=== PATIENT | male | born 1935 | race Caucasian/White ===

== ENCOUNTER 2018-09-11 23:39 | Emergency (ER) | payer MEDICARE ==
[~2018-09-11] VITALS: Ht 172.7 cm; Wt 72.6 kg
[2018-09-12 00:15] LABS: Chloride (POC) 96 mmol/L (98-108); Creatinine (POC) 1.2 mg/dL (0.8-1.3); Glucose (ISTAT POC) 132 mg/dL (70-99); Hemoglobin (POC) 12.2 g/dL (13.5-17.5); Potassium (POC) 3.3 mmol/L (3.5-5.5); Sodium (POC) 134 mmol/L (135-148); Total CO2 (POC) 22 mmol/L (21-32)
[2018-09-12] MEDS ORDERED: DORZOPSO (00:29)
[2018-09-12] MEDS ORDERED: Pure & Gentle E15 ML (00:29)
[2018-09-12] MEDS ORDERED: LATANOPROST2.5 ML OP (00:30)
[2018-09-12] MEDS ORDERED: Advair Hfa 230-12 GM (00:30)
[2018-09-12] MEDS ORDERED: HYDCHL25 PO (00:30)
[2018-09-12] MEDS ORDERED: SILD25T PO (00:31)
[2018-09-12] MEDS ORDERED: LOSA50 PO (00:31)
[2018-09-12] MEDS ORDERED: TAMS.4ER PO (00:31)
== END 2018-09-12 04:00 | disposition home or self-care (01) ==
LOC: ER 23:39
PROVIDERS: Emergency Medicine
DX: S01.01XA Laceration without foreign body of scalp, initial encounter (principal); Z79.899 Other long term (current) drug therapy; W18.30XA Fall on same level, unspecified, initial encounter
CPT/HCPCS: 70450; 70486; 72125; 80047; 85014